=== PATIENT | female | born 1965 ===

== ENCOUNTER 2021-12-23 19:19 | Emergency (ER) | payer SELFPAY ==
[~2021-12-23] VITALS: Ht 165.1 cm; Wt 132.0 kg
[2021-12-23] MEDS ORDERED: DIAZEPAM 5 MG TABLET PO ONE (22:00)
[2021-12-23] MEDS ORDERED: DEXAMETHASONE 4MG/ML 1ML VIAL IM ONE (22:00)
[2021-12-23] MEDS ORDERED: KETOROLAC 30MG/ML VIAL IM ONE (22:00)
[2021-12-23] MEDS ORDERED: ONDANSETRON 4MG ODT PO ONE (23:00)
[2021-12-23] MEDS ORDERED: MORPHINE SULFATE 4 MG/ML CPJ (NOT FOR IM USE) IV ONE (23:00)
[2021-12-23] MEDS ORDERED: LIDO700A15 TP (23:29)
[2021-12-23] MEDS ORDERED: CYCL10TA21 MT (23:29)
[2021-12-23] MEDS ORDERED: IBUP-2029 MT (23:29)
[2021-12-24 04:45] VITALS: BP 162/76
[2021-12-24] MEDS ORDERED: MORPHINE SULFATE 4 MG/ML CPJ (NOT FOR IM USE) IV ONE (04:45)
== END 2021-12-24 05:05 | disposition home or self-care (01) ==
LOC: ER 19:19
DX: M54.50 Low back pain, unspecified (principal); Z79.899 Other long term (current) drug therapy
CPT/HCPCS: 72100; 72128; 72131; 96372; 96374; 96376; 99285; J1100; J1885; J2270; Q0162